=== PATIENT | female | born 1990 ===

== ENCOUNTER 2018-05-22 12:59 | Outpatient (REF) | payer OTHER, SELFPAY ==
--- NOTE | 2018-05-22 10:00 | PAPFT_PTH ---
PATIENT: TRICIA FISCHER LOC: COUNT INCLUDES THE [facility] U#:[id number] AGE/SX: 27/F ROOM: RE05/22/[address]: Isadora Hillman : 1990 BED: DIS: 05/22/2018 SPEC #: [id number] RECD: 05/23/18 12:54 STATUS: JOEL REHong #: [id number] SANJEEV: 05/22/18 10:[address]: Isadora Morgan DEPT: [facility] Cytology RECD BY: Nora Sol Tissues: 1 - CX/ENDOCX FOR PAP SMEARS Procedures: PAP THIN PREP/[facility] Screening Comments: [id number] (CHLAMYDIA GC)
[2018-05-24 14:59] LABS: Chlamydia Result Negative; GC Result Negative; Specimen Description SEE COMMENTS
== END 2018-05-22 13:00 ==
LOC: NCHCN 12:59
PROVIDERS: PCP Nurse Practitioner Family; Visit Provider Nurse Practitioner Family
DX: Z11.3 Encounter for screening for infections with a predominantly sexual mode of transmission (principal); Z12.4 Encounter for screening for malignant neoplasm of cervix
CPT/HCPCS: 87491; 87591; 88142

== ENCOUNTER 2018-12-01 15:37 | Outpatient (REF) | payer OTHER, SELFPAY ==
[2018-12-04 14:50] LABS: Chlamydia Result Negative; GC Result Negative; Specimen Description VAGINAL
== END 2018-12-01 15:57 ==
LOC: NCHCN 15:37
PROVIDERS: PCP Nurse Practitioner Family; Visit Provider Family Medicine
DX: R35.0 Frequency of micturition (principal)
CPT/HCPCS: 87491; 87591; 87086